=== PATIENT | male | born 1955 | race Asian ===

== ENCOUNTER 2018-06-13 11:49 | Inpatient (IN) | payer OTHER ==
[~2018-06-13] VITALS: Ht 172.7 cm; Wt 92.0 kg
[2018-06-13 11:55] VITALS: BP_SYST 10; BP_SYST 107; BP_DIAS 73
[2018-06-13] MEDS ORDERED: METOPROLOL TARTRATE 25 MG TABLET PO SCH (12:30)
[2018-06-13] MEDS ORDERED: ACETAMINOPHEN 325 MG TABLET PO PRN (12:30)
[2018-06-13] MEDS ORDERED: DOCUSATE 100 MG CAPSULE PO PRN (12:30)
[2018-06-13] MEDS ORDERED: morphine SULFATE 10 MG/ML, 1ML IVPush PRN (12:30)
[2018-06-13] MEDS ORDERED: OXYcodone IR 5MG TABLET PO PRN (12:30)
[2018-06-13] MEDS ORDERED: LABETALOL 5MG/ML, 20ML IVPush PRN (12:30)
[2018-06-13] MEDS ORDERED: ONDANSETRON 2MG/ML, 2ML IVPush PRN (12:30)
[2018-06-13 13:44] LABS: TROPONIN I 0.511 ng/mL (0.000-0.045)
[2018-06-13 14:31] LABS: HEMOGLOBIN A1C 6.2 % (4.2-6.3)
[2018-06-13 15:12] VITALS: BP 93/61
[2018-06-13] MEDS: FUROSEMIDE 20 MG/2 ML IV SCH (16:02)
[2018-06-13] MEDS: POTASSIUM CHLORIDE 20 MEQ TAB.ER.PRT PO SCH (16:16)
[2018-06-13 16:33] LABS: TROPONIN I 0.543 ng/mL (0.000-0.045)
[2018-06-13] MEDS ORDERED: RANI150T4 PO (17:30)
[2018-06-13] MEDS ORDERED: FLUO60TA PO (17:30)
[2018-06-13] MEDS ORDERED: IPRATRO INH (17:30)
[2018-06-13] MEDS ORDERED: HYDR12.575 PO (17:30)
[2018-06-13] MEDS ORDERED: PROC10TA2 PO (17:30)
[2018-06-13] MEDS ORDERED: BUPR75TA6 PO (17:30)
[2018-06-13] MEDS ORDERED: QUET50TA PO ×2 (17:30)
[2018-06-13] MEDS ORDERED: ALBUTEROL INH (17:30)
[2018-06-13] MEDS: CARVEDILOL 6.25 MG TABLET PO SCH (17:57)
[2018-06-13 19:16] VITALS: BP 108/78
[2018-06-13] MEDS: ATORVASTATIN 80 MG TABLET PO SCH (20:12)
[2018-06-13] MEDS ORDERED: QUETIAPINE 100MG TABLET PO SCH (21:00)
[2018-06-14] VITALS (12 sets, daily range): BP systolic 87–141; BP diastolic 57–84
[2018-06-14 04:42] LABS: BASOPHILS # (AUTO) 0.05 x10^3/uL (0-0.1); BASOPHILS % (AUTO) 1 % (0-1); EOSINOPHILS # (AUTO) 0.17 x10^3/uL (0-0.4); EOSINOPHILS % (AUTO) 3 % (1-7); LYMPHOCYTES # (AUTO) 1.59 x10^3/uL (1-3.4); LYMPHOCYTES % (AUTO) 30 % (22-44); MD NO; MEAN CORPUSCULAR HEMOGLOBIN 30.3 pg (27.5-34.5); MEAN CORPUSCULAR HGB CONC 33.8 g/dL (33.2-36.2); MEAN CORPUSCULAR VOLUME 89.5 fL (81-97); MEAN PLATELET VOLUME 8.2 fL (7.4-10.4); MONOCYTES # (AUTO) 0.81 x10^3/uL (0.2-0.8); MONOCYTES % (AUTO) 15 % (2-9); NEUTROPHILS # (AUTO) 2.67 x10^3/uL (1.8-6.8); NEUTROPHILS % (AUTO) 50 % (42-75); PLATELET COUNT 249 x10^3/uL (130-400); RED BLOOD COUNT 4.63 x10^6/uL (4.38-5.82); RED CELL DISTRIBUTION WIDTH 13.9 % (9.4-14.8)
[2018-06-14 04:52] LABS: ANION GAP 7 mmol/L (5-15); CALCIUM 8.4 mg/dL (8.5-10.1); CHLORIDE 110 mmol/L (98-107)
[2018-06-14 04:54] LABS: CHOL/HDL RATIO 3.6; CHOLESTEROL, TOTAL 125 mg/dL (140-239); CREATININE 1.17 mg/dL (0.7-1.3); HDL CHOL % 28 % (26-37); HDL CHOLESTEROL (DIRECT) 35 mg/dL (40-60); LDL CHOLESTEROL,CALCULATED 62 mg/dL (54-169); LDL/HDL RATIO 1.8 (0.5-3.0); TRIGLYCERIDES 140 mg/dL (50-200); VLDL CHOLESTEROL 28 mg/dL (0-25)
[2018-06-14] MEDS: CARVEDILOL 6.25 MG TABLET PO SCH ×2 (06:03→18:14)
[2018-06-14] MEDS: ASPIRIN 325 MG TABLET PO SCH (06:03)
[2018-06-14 06:31] LABS: AMPHETAMINE SCREEN, URINE Negative (Negative); BARBITURATE SCREEN, URINE Negative (Negative); BENZODIAZEPINE SCREEN, URINE Negative (Negative); CANNABINOID SCREEN, URINE Negative (Negative); COCAINE SCREEN, URINE Negative (Negative); METHADONE SCREEN, URINE Negative (Negative); OPIATE SCREEN, URINE Negative (Negative)
[2018-06-14] MEDS: FUROSEMIDE 20 MG/2 ML IV SCH ×2 (07:30→17:01)
[2018-06-14] MEDS: POTASSIUM CHLORIDE 20 MEQ TAB.ER.PRT PO SCH (08:00)
[2018-06-14] MEDS ORDERED: REGADENOSON 0.4 MG/5 ML SYRINGE ONE (08:58)
[2018-06-14] MEDS: FLUOXETINE HCL 20 MG CAPSULE PO SCH (11:30)
[2018-06-14] MEDS: BUPROPION 75 MG TABLET PO SCH (11:30)
[2018-06-14] MEDS ORDERED: ENOXAPARIN 40 MG/0.4 ML SQ SCH (15:30)
[2018-06-14] MEDS: ATORVASTATIN 80 MG TABLET PO SCH (19:46)
[2018-06-14] MEDS ORDERED: QUETIAPINE 25MG TABLET PO SCH (21:00)
[2018-06-15 02:00] VITALS: BP 113/75
[2018-06-15 05:05] LABS: ANION GAP 7 mmol/L (5-15); CALCIUM 8.1 mg/dL (8.5-10.1); CHLORIDE 109 mmol/L (98-107); CREATININE 1.16 mg/dL (0.7-1.3)
[2018-06-15 05:52] VITALS: BP 98/66
[2018-06-15] MEDS: ASPIRIN 325 MG TABLET PO SCH (05:55)
[2018-06-15] MEDS: CARVEDILOL 6.25 MG TABLET PO SCH (05:55)
[2018-06-15 06:45] VITALS: BP 91/64
[2018-06-15] MEDS: FUROSEMIDE 20 MG/2 ML IV SCH (07:30)
[2018-06-15] MEDS ORDERED: LISINOPRIL 5 MG TABLET PO SCH (09:00)
[2018-06-15] MEDS ORDERED: FUROSEMIDE 40 MG TABLET PO SCH (09:00)
[2018-06-15] MEDS: POTASSIUM CHLORIDE 20 MEQ TAB.ER.PRT PO SCH (09:32)
[2018-06-15] MEDS: FLUOXETINE HCL 20 MG CAPSULE PO SCH (09:33)
[2018-06-15] MEDS: BUPROPION 75 MG TABLET PO SCH (09:33)
[2018-06-15 09:37] VITALS: BP 96/67
[2018-06-15] MEDS ORDERED: POTA20TA6 PO (11:48)
[2018-06-15] MEDS ORDERED: CARV6.2512 PO (11:48)
[2018-06-15] MEDS ORDERED: ATOR-2 PO (11:48)
[2018-06-15] MEDS ORDERED: LISI5TAB7 PO (11:48)
[2018-06-15] MEDS ORDERED: FURO40TA6 PO (11:48)
[2018-06-15] MEDS ORDERED: ASPI325T17 PO (11:48)
[2018-06-15 12:05] VITALS: BP 96/66
[2018-06-16] MEDS ORDERED: LISINOPRIL 5 MG TABLET PO SCH (09:00)
== END 2018-06-15 13:20 | disposition home or self-care (01) | DRG 292 ==
LOC: 5SO 11:49 → DCLOUNGE 06-15 12:26
PROVIDERS: ADMIT Internal Medicine; ATTEND Internal Medicine
DX: I11.0 Hypertensive heart disease with heart failure (principal); C85.90 Non-Hodgkin lymphoma, unspecified, unspecified site; I50.23 Acute on chronic systolic (congestive) heart failure; I42.9 Cardiomyopathy, unspecified; I20.0 Unstable angina; F14.21 Cocaine dependence, in remission; J44.9 Chronic obstructive pulmonary disease, unspecified; I95.9 Hypotension, unspecified; F41.1 Generalized anxiety disorder; I08.1 Rheumatic disorders of both mitral and tricuspid valves; Z96.621 Presence of right artificial elbow joint; I45.81 Long QT syndrome; Z87.891 Personal history of nicotine dependence; B19.20 Unspecified viral hepatitis C without hepatic coma; Z79.82 Long term (current) use of aspirin; Z79.899 Other long term (current) drug therapy; Z82.3 Family history of stroke; Z87.11 Personal history of peptic ulcer disease
CPT/HCPCS: 36415; 78452; 80048; 80061; 80307; 83036; 83735; 84100; 84443; 84484; 85025; 93005; 93017; C8929; G0378; J1650; J2785; A9502; C9898; J1940